=== PATIENT | female | born 1990 | race Caucasian/White ===

== ENCOUNTER 2023-02-12 08:30 | Emergency (ER) | payer OTHER, SELFPAY ==
--- NOTE | ~2023-02-12 | XR_ITS ---
Portable chest x-ray Comparison: 05/25/2017 Clinical History: Cough Findings: Lungs are clear, without focal consolidation or pleural effusion. Cardiomediastinal silho uette is stable. Bones and soft tissues are unremarkable. Impression: Normal chest. Reviewed, dictated and finalized at location . Impression: Normal chest.
[2023-02-12 08:50] VITALS: BP 109/74; PULSE 85; RESP 16; TEMP 36.7; O2SAT 100
[2023-02-12 09:08] VITALS: O2SAT 100
[2023-02-12 09:10] VITALS: BP 115/84; PULSE 107; RESP 20; O2SAT 100
[2023-02-12] MEDS: KETOROLAC 15 MG/ML VIAL (*BKC) IV PUSH (09:41)
[2023-02-12] MEDS: SODIUM CHLORIDE 0.9% IV 1,000 ML 999 ML IV CONT (09:41)
--- NOTE | 2023-02-12 09:59 | ED.GENADULT ---
HPI - General Adult General Chief complaint: Unspecified <Jerome Sommers PA-C - Last Filed: 02/12/23 17:42> Stated complaint: sore throat after inhaling bleach yesterday <Jerome Sommers PA-C - Last Filed: 02/12/23 17:42> Time Seen by Provider: 02/12/23 08:59 <Jerome Sommers PA-C - Last Filed: 02/12/23 17:42> Source: patient <Jerome Sommers PA-C - Last Filed: 02/12/23 17:42> Mode of arrival: ambulatory <JUAN JOSE Mak Last Filed: 02/12/23 17:42> Limitations: no limitations <Jerome Sommers PA-C - Last Filed: 02/12/23 17:42> History of Present Illness HPI narrative: This is a 32-year-old female who presents to the ED with chief complaint of sore throat for 1 day. She has additional complaints of headache, body aches, chills and hot flashes. She also reports tender lymph nodes in the throat. She states she has concern that she inhaled bleach. She states her was working in the bathroom yesterday when she walked in and feels like this all may have started after that. She states she had an episode of hard coughing this morning and then had 1 episode of vomiting. Denies any current nausea. Denies any recorded fevers. Denies any abdominal pain, chest pain, shortness of breath or LOC. <Jerome Sommers PA-C - Last Filed: 02/12/23 17:42> Related Data Allergies/adverse reactions: Allergies Allergy/AdvReac Type Severity Reaction Status Date / Time No Known Allergies Allergy Unverified 09/04/18 21:22 <Jerome Sommers PA-C - Last Filed: 02/12/23 17:42> [facility] [place] Family History Family History: Family History (Updated 03/23/14 @ 07:13 by DOCTOR UNKNOWN) Grandparent Hypertension <JUAN JOSE Mak Last Filed: 02/12/23 17:42> Social History Social History: Social History Smoking status: Never smoker <Jerome Sommers PA-C - Last Filed: 02/12/23 17:42> Exam Narrative: GENERAL: Well-appearing, well-nourished, and in no acute distress. HEAD: Normocephalic, atraumatic. EYES: PERRLA and EOMI. ENT: Bilateral tonsillar hypertrophy, worse on the right side. Uvula midline. No exudates. Tender lymphadenopathy in the anterior cervical chain bilaterally but again worse on the right. Tolerating secretions. Airway intact. Nares clear, no rhinorrhea or epistaxis. Mucous membranes moist. NECK: Supple. No adenopathy or masses. CHEST: No respiratory distress. Clear to auscultation. No wheezes rales or rhonchi HEART: Regular rate and rhythm. No murmur heard. Normal peripheral pulses. ABDOMEN: Soft, nontender, nondistended, normal active bowel sounds. MSK: Normal range of motion. No edema. SKIN: Warm, dry, no rash. NEURO: Alert and oriented x3. No focal deficits. PSYCH: Normal mood and affect. 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 <Barbara Muller MD - Last Filed: 02/12/23 18:48> Vital Signs Vital signs: Vital Signs Temperature 98.1 F 02/12/23 08:50 Pulse Rate 85 02/12/23 08:50 Respiratory Rate 16 02/12/23 08:50 Blood Pressure 109/74 02/12/23 08:50 Pulse Oximetry 100 02/12/23 08:50 Oxygen Delivery Room Air 02/12/23 08:50 Temperature 98.1 F 02/12/23 08:50 Pulse Rate 110 H 02/12/23 11:29 Respiratory Rate 18 02/12/23 11:29 Blood Pressure 110/76 02/12/23 11:29 Pulse Oximetry 100 02/12/23 11:29 Oxygen Delivery Room Air 02/12/23 09:08 <Jerome Sommers PA-C - Last Filed: 02/12/23 17:42> Vital Signs Temperature 98.1 F 02/12/23 08:50 Pulse Rate 85 02/12/23 08:50 Respiratory Rate 16 02/12/23 08:50 Blood Pressure 109/74 02/12/23 08:50 Pulse Oximetry 100 02/12/23 08:50 Oxygen Delivery Room Air 02/12/23 08:50 Temperature 98.1 F 02/12/23 08:50 Pulse Rate 110 H 02/12/23 11:29 Respiratory Rate 18 02/12/23 11:29
[2023-02-12 10:48] LABS: Basophils Percent Auto 0.3 % (0.2-1.2); Eosinophils Absolute Auto 0.1 K/mm3 (0-0.3); Eosinophils Percent Auto 0.8 % (0-4.4); Hematocrit 37.3 % (37.0-47.0); Hemoglobin 12.2 g/dL (12.0-15.0); Immature Granulocyte Absolute 0.08 K/mm3 (0.00-0.031); Immature Granulocyte Percent A 0.6 % (0-0.5); Lymphocytes Absolute Auto 1.84 K/mm3 (0.9-3.2); Lymphocytes Percent Auto 14.3 % (18.3-44.2); Mean Corpuscular HGB Conc 32.7 g/dl (32-36); Mean Corpuscular Hemoglobin 29.5 pg (26-34); Mean Corpuscular Volume 90.3 fl (80-100); Mean Platelet Volume 10.4 fl (7.4-10.4); Monocytes Percent Auto 7.6 % (2.6-8.5); Neutrophils Absolute Auto 9.8 K/mm3 (1.3-6.7); Neutrophils Percent Auto 76.4 % (45.5-73.1); Platelet Count Result 170 k/mm3 (150-375); Red Blood Count 4.13 M/mm3 (4.2-5.4); White Blood Count 12.8 K/mm3 (4.5-10.0)
[2023-02-12 10:58] LABS: Alanine Aminotransferase 16 U/L (6-35); Albumin Level 3.3 g/dL (3.5-5.1); Alkaline Phosphatase 52 U/L (38-126); Anion Gap 6 mmol/L (8-16); Aspartate Amino Transferase 25 U/L (14-36); Bilirubin,Total 0.7 mg/dL (0.2-1.3); Blood Urea Nitrogen 5 mg/dL (7-17); Carbon Dioxide 20 mmol/L (22-30); Chloride 111 mmol/L (98-107); Estimated CRCL calculation 95 ml/min; Estimated Glomerular Filt Rate > 60; Glucose 84 mg/dL (65-110); Potassium 3.6 mmol/L (3.4-5.0); Sodium 137 mmol/L (137-145)
[2023-02-12 11:11] LABS: Strep Group A RT-PCR DETECTED (Negative)
[2023-02-12 11:28] LABS: Monoscreen Negative (Negative); Negative Monotest Control Negative (Negative); Positive Monotest Control Positive (Positive)
[2023-02-12 11:29] VITALS: BP 110/76; PULSE 110; RESP 18; O2SAT 100
== END 2023-02-12 11:31 | disposition home or self-care (01) ==
PROVIDERS: Emergency Provider Physician Assistant
DX: J02.0 Streptococcal pharyngitis (principal)
CPT/HCPCS: 36415; 71045; 80053; 85025; 86308; 87651; 96361; 96374; 99284; J1885; J7030

== ENCOUNTER 2024-03-18 06:24 | Emergency (ER) | payer OTHER, SELFPAY ==
[2024-03-18] VITALS (8 sets, daily range): BP systolic 102–125; BP diastolic 71–86; PULSE 80–100; RESP 14–18; O2SAT 96–100
--- NOTE | 2024-03-18 06:36 | ECG_ITS ---
Test Date: 2024-03-18 06:40:07 Measurements Intervals [place] Rate: 83 P: 62 VA: 141 QRS: 56 QRSD: 79 T: 41 QT: 314 QTc: 370 Interpretive Statements SINUS RHYTHM WITH SINUS ARRHYTHMIA NORMAL ELECTROCARDIOGRAM No previous ECG available for comparison Electronically Signed On 03-18-2024 12:52:09 CDT by Zach Zuluaga M.D.
[2024-03-18 07:08] LABS: Basophils Percent Auto 0.4 % (0.2-1.2); Eosinophils Percent Auto 0.6 % (0-4.4); Hematocrit 40.5 % (37.0-47.0); Hemoglobin 12.9 g/dL (12.0-15.0); Immature Granulocyte Absolute 0.02 K/mm3 (0.00-0.031); Immature Granulocyte Percent A 0.4 % (0-0.5); Lymphocytes Absolute Auto 1.01 K/mm3 (0.9-3.2); Lymphocytes Percent Auto 21.8 % (18.3-44.2); Mean Corpuscular HGB Conc 31.9 g/dl (32-36); Mean Corpuscular Hemoglobin 28.7 pg (26-34); Mean Corpuscular Volume 90.2 fl (80-100); Mean Platelet Volume 10.8 fl (7.4-10.4); Monocytes Absolute Auto 0.9 K/mm3 (0.1-0.6); Monocytes Percent Auto 18.8 % (2.6-8.5); Neutrophils Absolute Auto 2.7 K/mm3 (1.3-6.7); Platelet Count Result 170 k/mm3 (150-375); Red Blood Count 4.49 M/mm3 (4.2-5.4); White Blood Count 4.6 K/mm3 (4.5-10.0)
[2024-03-18 07:16] LABS: Alanine Aminotransferase 27 U/L (6-35); Albumin Level 4.3 g/dL (3.5-5.1); Alkaline Phosphatase 64 U/L (38-126); Anion Gap 12 mmol/L (4-12); Aspartate Amino Transferase 42 U/L (14-36); Bilirubin,Total 0.3 mg/dL (0.2-1.3); Blood Urea Nitrogen 7 mg/dL (7-17); Calcium 8.9 mg/dL (8.4-10.2); Carbon Dioxide 20 mmol/L (22-30); Chloride 104 mmol/L (98-107); Estimated CRCL calculation 72 ml/min; Estimated Glomerular Filt Rate > 60; Glucose 91 mg/dL (65-110); Lactic Acid Reflex 1.1 mmol/L (0.7-2.0); Lipase 123 U/L (23-300); Potassium 3.9 mmol/L (3.4-5.0); Sodium 136 mmol/L (137-145)
--- NOTE | 2024-03-18 08:09 | ED.NAVMDI ---
HPI - Nausea/Vomiting/Diarrhea General Chief complaint: Nausea/Vomiting/Diarrhea Stated complaint: Vomiting, hot sweats, cold flashes, body aches Time Seen by Provider: 03/18/24 06:58 History of Present Illness HPI Narrative: 33-year-old female presenting with vomiting, cold and hot flashes, body aches. States that it all started last night. She states that she feels sore all over. Has been nauseated and has had multiple episodes of vomiting. States that she also has a headache. She denies cough, shortness of breath, chest pain. States that she has mild abdominal cramping but she is currently menstruating so she thinks it is related to this. No dysuria or leg swelling. No further complaints. Related Data Allergies Allergy/AdvReac Type Severity Reaction Status Date / Time No Known Allergies Allergy Unverified 09/04/18 21:22 Review of Systems Review of Systems: All systems reviewed & are unremarkable except as noted in HPI and below PMFSH Family History Family History Grandparent Hypertension Social History Social History Smoking status: Never smoker Exam Narrative: GENERAL: Tearful secondary to being in the ER, pleasant and cooperative HEAD: Normocephalic, atraumatic. EYES: PERRLA and EOMI. ENT: Mucous membranes moist. NECK: Supple. CHEST: Clear to auscultation. No respiratory distress. HEART: Regular rate and rhythm ABDOMEN: Soft, nontender, nondistended EXTREMITIES: Normal range of motion. No edema. SKIN: Warm, dry, no rash. NEURO: No focal deficits. Alert and oriented x3. PSYCH: Normal mood and affect. Course Vital Signs Vital signs: Vital Signs Pulse Rate 99 03/18/24 06:33 Respiratory Rate 14 03/18/24 06:33 Blood Pressure 110/81 03/18/24 06:33 Pulse Oximetry 100 03/18/24 06:33 Oxygen Delivery Room Air 03/18/24 06:33 Pulse Rate 80 03/18/24 13:00 Respiratory Rate 16 03/18/24 13:00 Blood Pressure 108/73 03/18/24 13:00 Pulse Oximetry 99 03/18/24 13:00 Oxygen Delivery Room Air 03/18/24 06:33 MDM - Nausea/Vomiting/Diarrhea MDM Narrative Medical decision making narrative: 33-year-old female presenting with nausea, vomiting, body aches. Vitals are stable. Exam remarkable for the above. Blood work is unremarkable. Patient is positive for COVID-19. She also appears to have a UTI. Will get her started on some Keflex. Patient is safe for outpatient management. Discussed appropriate supportive care and PCP follow-up. Appropriate return precautions given. Discharged in stable condition. Differential Diagnosis Differential diagnosis: Likely food poisoning, gastroenteritis, dehydration and other (COVID, UTI) Medical Records Attestation: I reviewed the patient's medical records. Lab Data Attestation: I reviewed the patient's lab results. 03/18/24 06:58 03/18/24 06:58 Labs: Lab Results 03/18/24 03/18/24 03/18/24 Range/Units 06:58 08:13 09:44 WBC 4.6 (4.5-10.0) K/mm3 RBC 4.49 (4.2-5.4) M/mm3 Hgb 12.9 (12.0-15.0) g/dL Hct 40.5 (37.0-47.0) % MCV 90.2 (80-100) fl MCH 28.7 (26-34) pg MCHC 31.9 L (32-36) g/dl RDW 13.0 (11.5-14.5) % Plt Count 170 (150-375) k/mm3 MPV 10.8 H (7.4-10.4) fl Immature Gran % (Auto) 0.4 (0-0.5) % Neut % (Auto) 58.0 (45.5-73.1) % Lymph % (Auto) 21.8 (18.3-44.2) % [place] % (Auto) 18.8 H (2.6-8.5) % Eos % (Auto) 0.6 (0-4.4) % Baso % (Auto) 0.4 (0.2-1.2) % Lymph # (Auto) 1.01 (0.9-3.2) K/mm3 [place] # (Auto) 0.9 H (0.1-0.6) K/mm3 Eos # (Auto) 0.0 (0-0.3) K/mm3 Baso # (Auto) 0.0 (0.0-0.1) K/mm3 Abs Immat Gran (auto) 0.02 (0.00-0.031) K/mm3 Absolute Neuts (auto) 2.7 (1.3-6.7) K/mm3 Absolute Nucleated RBC 0.000 (0.0-0.012) K/mm3 Nucleated RBC % 0.0 (0.0-0.2) % Sodium 136
[2024-03-18] MEDS: ONDANSETRON INJ 4 MG/2 ML VIAL IV PUSH (08:32)
[2024-03-18] MEDS: SODIUM CHLORIDE 0.9% IV 1,000 ML 999 ML IV CONT (08:32)
[2024-03-18] MEDS: KETOROLAC 15 MG/ML VIAL (*BKC) IV PUSH (08:33)
[2024-03-18 08:57] LABS: Influenza A QL RT-PCR Negative (Negative); Influenza B QL RT-PCR Negative (Negative); RSV RNA, RT-PCR Negative (Negative); SARS-CoV-2 RNA PCR Positive (Negative)
[2024-03-18 09:48] LABS: BEDSIDEPREGUCG Negative
[2024-03-18 11:02] LABS: Add Urine Microscopic? YES; Appearance Urine Turbid (Clear); Bacteria Urine 4+ /hpf; Bilirubin Urine Negative (Negative); Blood Urine 3+ (Negative); Glucose Urine UA Negative (Negative); Ketones Urine 2+ mg/dL (Negative); Leukocyte Esterase Ur 1+ LEU/UL (Negative); Nitrate Urine Positive (Negative); Protein Urine 3+ mg/dL (Negative); RBC Urine >100 /hpf (0-2); Squamous Epithelial Cell Urine Moderate /hpf (Few); WBC Urine 21-50 /hpf (0-3); pH Urine 6.5 (5.0-9.0)
[2024-03-18 11:04] LABS: Color Urine Brown (Yellow)
[2024-03-18] MEDS: CEPHALEXIN 500 MG CAPSULE PO (11:26)
== END 2024-03-18 13:30 | disposition home or self-care (01) ==
PROVIDERS: Emergency Medicine; Emergency Provider Emergency Medicine
DX: U07.1 COVID-19 (principal); N39.0 Urinary tract infection, site not specified
CPT/HCPCS: 36415; 80053; 81001; 81025; 83605; 83690; 85025; 87077; 87086; 87088; 87186; 87637; 93005; 96361; 96374; 96375; 99284; A9270; J1885; J2405; J7030